=== PATIENT | female | born 1980 | race Caucasian/White ===

== ENCOUNTER 2016-09-24 18:44 | Emergency (ER) | payer OTHER ==
[~2016-09-24 18:44] MED LIST: ATARAX PO; BACTRIM DS TABL1 TA1 PO; BENZONATATE PO; BETAMETHASONE D15 G5 TP; NAPROXEN PO; NO MEDICATIONS; PEN-VEE K PO; PERCOCET PO; PHENERGAN25 MG PO; PREDNISONE PO; ULTRAM PO
== END 2016-09-24 19:34 | disposition home or self-care (01) ==
LOC: SED 18:44
DX: S61.211A Laceration without foreign body of left index finger without damage to nail, initial encounter (principal); S68.121A Partial traumatic metacarpophalangeal amputation of left index finger, initial encounter; F17.210 Nicotine dependence, cigarettes, uncomplicated; Z23 Encounter for immunization; W26.0XXA Contact with knife, initial encounter; Y92.009 Unspecified place in unspecified non-institutional (private) residence as the place of occurrence of the external cause
CPT/HCPCS: 12001; 90471; 90715; 99283